=== PATIENT | female | born 1990 | race Caucasian/White ===

== ENCOUNTER 2019-05-14 11:08 | Emergency (ER) | payer MEDICAID, SELFPAY ==
[2019-05-14 11:14] VITALS: BP 126/72; PULSE 68; RESP 18; TEMP 36.7; O2SAT 97
--- NOTE | 2019-05-14 11:31 | ED.GENADUL_ITS ---
Discharge Plan Disposition Patient Disposition: HOME Condition: Good Discharge Details Chief Complaint: DentalOral Clinical Impression: Abscess, dental Primary Care Provider: Deepika Lemus ED Provider: Devora Mandujano Home Meds and New Rx's Prescriptions: New amoxicillin-pot clavulanate [Augmentin] 875-125 mg tablet 1 tab PO BID Qty: 14 RF: 0 Continued venlafaxine 75 MG tablet 150 mg PO DAILY RF: 0 venlafaxine [Effexor XR] 37.5 mg Capsule,Extended Release 24hr 37.5 mg PO DAILY RF: 0 lamotrigine 25 mg Tablet 75 mg PO DAILY RF: 0 acetylcysteine [NAC] 600 mg Capsule 1,200 mg PO DAILY RF: 0 acetylcysteine [NAC] 600 mg Capsule 600 mg PO HS RF: 0 Discharge Instructions Instructions: Dental Abscess (ED) Additional Instructions: Encourage water intake. Encourage good dental care. Tylenol and ibuprofen as needed for discomfort. Please take the Augmentin as prescribed. Even if symptoms improve, please take the entire course. You will need definitive care for your dental infection, please call the dentist. List of local dentist is attached. If you develop increased swelling, increased pain, fever/chills or other new/worsening symptom please seek care urgently once again. Referrals: Deepika Lemus [Primary Care Provider] - Discharge Data Discharge Date/Time-TO BE ENTERED AT DEPARTURE: 05/14/19 12:15 Medical Decision Making Patient is a pleasant 28-year-old female presented with chief complaint of left lower dental pain. She reports that the pain began a few days ago is progressively increasing. She only noted swelling this morning. Denies any fevers or chills. No recent travel. Patient reports that she has had issues with this historically is not been able to see a dentist secondary to insurance restrictions. Patient status post tubal ligation. She denies difficulty swallowing, difficulty breathing. On exam, patient has notable swelling to the left lower jaw. I did evaluate this with an ultrasound and see small pocket of fluid along the anterior aspect of the area of swelling. The remaining areas there is more consistent with soft tissue swelling. No trismus, change in voice. No swelling under her tongue. No swelling posterior oropharynx. Neck exam is normal. Patient I discussed risks benefits of drainage. We discussed expected procedural steps. She was understanding and wished to proceed. Please see procedure note. Area was initially numbed with Hurricaine gel and then injected with lidocaine. She tolerated this well. Amount of thick purulent discharge was expressed. Patient will be started on Augmentin. E ncourage water intake. Advised she can continue with Tylenol and/or ibuprofen as needed for discomfort. All of her questions and concerns addressed she is agreement with plan. List of local dentist was given and she will start calling tomorrow to see get definitive care for her dental infection. Review the PDMP. Patient is on Suboxone. HPI General Mode of arrival: ambulatory . Date/Time Provider Initiated Documentation: 05/14/19 11:31 . Limitations to Documentation: no limitations . Information obtained by: patient . History of Present Illness 28 year old F presents to the emergency department with the chief complaint of left lower dental pain, described as severe, with intensity rated at 9. Quality is described as stabbing, and is localized to the mouth. Patient reports no radiation. Patient started experiencing this day(s) and it has been constant. No relieving factors improve symptom(s), No exacerbating factors reported . Patient notes no other symptoms.. Patient did receive the following treatments prior to arrival, NSAID and other (tylenol) Related Data Home Medications Medication Instructions Recorded Confirmed venlafaxine 150 mg PO DAILY 04/20/15 05/14/19 acetylcysteine [NAC] 1,200 mg PO DAILY 05/14/19 05/14/19 acetylcysteine [NAC] 600 mg PO HS 05/14/19 05/14/19 amoxicillin-pot clavulanate 1 tab PO BID #14 tab 05/14/19 [Augmentin] lamotrigine 75 mg PO DAILY 05/14/19 05/14/19 venlafaxine [Effexor XR] 37.5 mg PO DAILY 05/14/19 05/14/19 Previous Rx's Medication Instructions Recorded amoxicillin-pot clavulanate 1 tab PO BID #14 tab 05/14/19 [Augmentin] Allergies Allergy/AdvReac Type Severity Reaction Status Date / Time No Known Allergies Allergy Unverified 04/20/15 17:38 General Stated Complaint: DentalOral JORDIN: 4 Review of Systems Constitutional Constitutional: Reports as per HPI, Denies chills, Denies fatigue, Denies fever(s), Denies headache(s) and Denies poor appetite Eyes Eyes: Denies change in vision and Denies irritation ENT Ears, Nose, Mouth, and Throat: Reports as per HPI, Reports dental pain, Denies dysphagia, Denies dizziness, Denies dry mouth, Denies ear discharge, Denies otalgia, Reports facial pain, Denies headache(s), Denies hoarseness, Denies lip swelling, Denies nasal congestion, Denies odynophagia and Denies sore throat Cardiovascular Cardiovascular: Reports as per HPI and Denies chest pain Respiratory Respiratory: Reports as per HPI and Denies cough Gastrointestinal Gastrointestinal: Reports as per HPI, Denies dysphagia, Denies nausea, Denies odynophagia and Denies vomiting Integumentary/Breasts Skin/Breast: Reports as per HPI, Denies erythema, Denies rash and Denies skin pain Neurologic Neurologic: Reports as per HPI, Denies dizziness and Denies headache(s) Endocrine Endocrine: Denies fatigue Allergic/Immunologic Allergic/Immunologic: Denies lip swelling [facility] Surgical History (Updated 05/14/19 @ 11:46 by TONG Cortes) Tubal ligation status (Acute) Social History Smoking/Tobacco Use Status: Current-Occasional Alcohol Intake: never Drug use: Daily Substance use type: marijuana Do you feel safe at home: Yes Do you feel safe in your relationship?: Yes Exam Const General: cooperative, healthy appearing, comfortable, no acute distress, well developed and well groomed Nutritional Appearance: average body habitus and well nourished Orientation: alert and awake [facility] Head: normal to inspection, normocephalic and atraumatic Ears: hearing grossly normal bilaterally, external ears normal and TM's normal bilaterally General nose exam: external nose normal and nares normal Face and sinus: abnormal facial exam, sinuses nontender and face asymmetric (swelling to left lower side of face adjacent to the area of dental pain) Face images: 1. area of swelling and tenderness Mouth: lip normal, tongue normal, salivary ducts normal, oropharynx normal, no drooling, no muffled voice, no trismus and No restricted motion Teeth and gingiva: poor dentition (swelling and tenderness buccal side #[id number] tooth) Throat: posterior oropharynx normal, tonsils normal and uvula midline Eyes General: appearance normal, both eyes and all related structures Neck Neck: normal visual inspection, full ROM, no lymphadenopathy, supple and no anterior neck swelling Resp Effort & Inspection: normal respiratory effort, able to speak in complete se ntences and no respiratory distress Auscultation: clear to auscultation bilaterally, no rales, no rhonchi and no wheezes Cardio Rate: regular rate Rhythm: regular rhythm Heart Sounds: S1 normal and S2 normal Skin General skin exam: no rashes or lesions noted Trauma: no lacerations or abrasions Neuro General: alert and awake Cognition: normal cognition Speech: speech normal Gait: normal gait Psych Appearance: grossly normal and well kempt Mental Status: mental status grossly normal Speech and Movement: speech and movement normal Course Vital Signs Vital signs: Vital Signs Temperature 36.7 C 05/14/19 11:14 Pulse 68 05/14/19 11:14 Respiratory Rate 18 05/14/19 11:14 Blood Pressure 126/72 05/14/19 11:14 Pulse Oximetry 97 05/14/19 11:14 Temperature 36.7 C 05/14/19 11:14 Temperature Source Skin 05/14/19 11:14 Pulse 68 05/14/19 11:14 Respiratory Rate 18 05/14/19 11:14 Respiratory Effort Non-Labored 05/14/19 11:17 Blood Pressure 126/72 05/14/19 11:14 Blood Pressure Position Sitting 05/14/19 11:14 Pulse Oximetry 97 05/14/19 11:14 Oxygen Delivery Method Room Air 05/14/19 11:14 Oxygen Flow Rate 0 05/14/19 11:14 Pain Level 9 05/14/19 11:14
[2019-05-14] MEDS: Benzocaine 20% Gel 30 GM JAR MM (11:48)
[2019-05-14] MEDS: Amoxicillin 875/Clav. 125 TAB PO (12:08)
[2019-05-14 12:16] VITALS: BP 126/72; PULSE 68; RESP 18; TEMP 36.7; O2SAT 97
[2019-05-17 22:16] LABS: Abs Immature Grans 0.03 k/cumm (0.0-0.09); Absolute Basophil Count 0.03 k/cumm (0.0-0.2); Absolute Eosinophil Count 0.23 k/cumm (0.0-0.7); Absolute Lymphocyte Count 2.44 k/cumm (1.2-3.4); Absolute Monocyte Count 0.55 k/cumm (0.11-0.7); Absolute Neutrophil Count 3.52 k/cumm (1.2-6.7); Basophils % 0.4; Eosinophils % 3.4; HGB 13.3 g/dL (12.0-15.5); Immature Grans % 0.4 %; Lymphocytes % 35.9; Mean Corp. HGB Concentration 33.3 g/dL (32.0-36.0); Mean Corpuscular Hemoglobin 30.1 pg (27.0-33.0); Mean Corpuscular Volume 90.5 fL (80-95); Mean Platelet Volume 10.3 fL (8.0-11.0); Monocytes % 8.1; Neutrophils % 51.8; Platelet Count 350 x1000/uL (130-400); RBC 4.42 m/cumm (4.00-5.20); RBC Distribution Width 12.6 % (11.7-14.6)
[2019-05-17 23:08] LABS: ALT 15 U/L (14-59); AST 12 U/L (15-37); Alkaline Phosphatase 65 U/L (46-116); Anion Gap 10.7 mmol/L (3-11); BUN 13 mg/dL (7-18); Bilirubin, Total 0.2 mg/dL (0.2-1.0); CO2 29.3 mmol/L (21.0-32.0); CREATININE 0.56 mg/dL (0.55-1.02); Calcium 9.1 mg/dL (8.5-10.1); Calculated LDL 91 mg/dL (<100); Chloride 102 mmol/L (98-107); Cholesterol 143 mg/dL (<200); Glucose 69 mg/dL (74-106); HDL Cholesterol 39 mg/dL (40-60); Sodium 142 mmol/L (136-145); TSH (W/Ref FT4) 1.19 uIU/mL (0.36-3.74); Total Protein 7.4 g/dL (6.4-8.2); Triglyceride 69 mg/dL (<150); Vitamin B12 380 pg/mL (193-986)
[2019-05-17 23:16] LABS: C-Reactive Protein 3.34 mg/dL (0.0-0.3)
[2019-05-18 06:47] LABS: Vitamin D 25 Total 11.5 ng/ml (30-100)
[2019-05-19 09:50] LABS: FSH 6.3 mIU/mL (See Note)
[2019-05-19 10:02] LABS: HIV-1/2 Ag & Ab Screen Negative (Negative)
[2019-05-19 14:49] LABS: Chlamydia Result Negative (Negative); GC Result Negative (Negative)
== END 2019-05-14 12:15 | disposition home or self-care (01) ==
LOC: ER 12:09 → NCHCN 05-17 10:45
PROVIDERS: Emergency Provider Physician Assistant; PCP Internal Medicine
DX: R22.0 Localized swelling, mass and lump, head (principal); R68.84 Jaw pain; K04.7 Periapical abscess without sinus
CPT/HCPCS: 41800; 80053; 80061; 82306; 87389; 87491; 87591; 82607; 83001; 84146; 84443; 85025; 86140

== ENCOUNTER 2019-05-17 09:49 | Outpatient (REF) | payer MEDICAID, SELFPAY | END 2019-05-17 10:09 | LOC: NCHCN 09:49 | PROVIDERS: PCP Internal Medicine; Visit Provider Internal Medicine | DX: Z12.11 Encounter for screening for malignant neoplasm of colon (principal); Z11.4 Encounter for screening for human immunodeficiency virus [HIV] | CPT/HCPCS: 41800 ==

== ENCOUNTER 2020-07-17 16:22 | Outpatient (REF) | payer MEDICAID, SELFPAY ==
--- NOTE | 2020-07-17 14:25 | PAPFT_PTH ---
PATIENT: Alice Natarajan LOC: [facility] U#:[id number] AGE/SX: 29/F ROOM: RE07/17/[address]: Deepika Lemus : 1990 BED: DIS: 07/17/2020 SPEC #: [id number] RECD: 07/18/20 12:45 STATUS: MUNIRA REKamran #: [id number] DEMETRA: 07/17/20 14:[address]: Deepika Lemus DEPT: [facility] Cytology RECD BY: Lucero Magaña Tissues: 1 - CX/ENDOCX FOR PAP SMEARS Procedures: PAP THIN PREP/UVM Screening HPV DNA PROBE Comments: [id number]
== END 2020-07-17 16:23 | disposition home or self-care (01) ==
LOC: NCHCN 16:22
PROVIDERS: PCP Internal Medicine; Visit Provider Internal Medicine
DX: Z12.4 Encounter for screening for malignant neoplasm of cervix (principal); R87.610 Atypical squamous cells of undetermined significance on cytologic smear of cervix (ASC-US); Z11.51 Encounter for screening for human papillomavirus (HPV)
CPT/HCPCS: 88142; 87624

== ENCOUNTER 2020-10-24 17:32 | Outpatient (REF) | payer MEDICAID, SELFPAY ==
[2020-10-26 13:12] LABS: Lithium 1.1 mmol/l (0.6-1.2)
== END 2020-10-24 17:33 | disposition home or self-care (01) ==
LOC: NCHCN 17:32
PROVIDERS: PCP Internal Medicine; Visit Provider Internal Medicine
DX: F11.20 Opioid dependence, uncomplicated (principal); F31.9 Bipolar disorder, unspecified
CPT/HCPCS: 80178

== ENCOUNTER 2021-09-26 20:58 | Outpatient (REF) | payer MEDICAID, SELFPAY ==
[2021-09-29 15:30] LABS: COVID-19 RT-PCR UVMMC Result Negative (Negative)
== END 2021-09-26 20:59 | disposition home or self-care (01) ==
LOC: NCHCN 20:58
PROVIDERS: PCP Internal Medicine; Visit Provider Registered Nurse
DX: Z20.822 Contact with and (suspected) exposure to COVID-19 (principal); J06.9 Acute upper respiratory infection, unspecified
CPT/HCPCS: U0003

== ENCOUNTER 2021-09-30 18:32 | Outpatient (REF) | payer MEDICAID, SELFPAY ==
[2021-09-30 20:26] LABS: TSH (W/Ref FT4) 0.21 uIU/mL (0.36-3.74)
[2021-09-30 20:44] LABS: FREE T4 1.02 ng/dL (0.76-1.46)
== END 2021-09-30 18:33 | disposition home or self-care (01) ==
LOC: NCHCN 18:32
PROVIDERS: PCP Internal Medicine; Visit Provider Nurse Practitioner Family
DX: R00.0 Tachycardia, unspecified (principal); R25.1 Tremor, unspecified
CPT/HCPCS: 84439; 84443

== ENCOUNTER 2021-10-07 15:16 | Outpatient (REF) | payer MEDICAID, SELFPAY ==
[2021-10-07 21:07] LABS: T4 7.8 ug/mL (4.7-13.3); TSH 0.65 uIU/mL (0.36-3.74)
[2021-10-08 18:02] LABS: T3, Total 130 ng/dL (97-169)
[2021-10-08 19:15] LABS: Thyroglobulin Antibody <15 U/mL (<=60); Thyroperoxidase Antibody <28 U/mL (<=60)
== END 2021-10-07 15:17 | disposition home or self-care (01) ==
LOC: NCHCN 15:16
PROVIDERS: PCP Internal Medicine; Visit Provider Nurse Practitioner Family
DX: E05.90 Thyrotoxicosis, unspecified without thyrotoxic crisis or storm (principal)
CPT/HCPCS: 86376; 84436; 84443; 84480

== ENCOUNTER 2022-01-04 18:42 | Emergency (ER) | payer MEDICAID, SELFPAY ==
[2022-01-04 19:00] VITALS: BP 115/66; PULSE 64; RESP 18; TEMP 36.7; O2SAT 99
--- NOTE | 2022-01-04 19:10 | ED.GENADUL_ITS ---
Discharge Plan Disposition Patient Disposition: HOME Condition: Stable Discharge Details Clinical Impression: Acromioclavicular joint separation, type 3 Primary Care Provider: Deepika Lemus ED Provider: Thee Nevarez Home Meds and New Rx's Prescriptions: Continued venlafaxine 75 MG tablet 150 mg PO DAILY lamotrigine 25 mg Tablet 200 mg PO DAILY acetylcysteine [NAC] 600 mg Capsule 1,200 mg PO DAILY buprenorphine-naloxone [Suboxone] 8-2 mg film 2 film sublingual DAILY Discharge Instructions Instructions: Acromioclavicular Separation (ED) Additional Instructions: X-ray reveals an AC joint separation. Wear sling until reevaluation with o rthopedics. Passive range of motion to avoid a frozen shoulder at least 4 times daily. [id number] Tylenol and/or Motrin as directed for discomfort. Cool compresses every 2 hours for 20 minutes. Please watch for new or worsening symptoms and return to the ER for any concerns. I have placed you on the orthopedic list, please contact their office tomorrow to discuss your shoulder injury and need for outpatient reevaluation. Referrals: Blair Morales MD [ [facility] STAFF PHYSICIAN] - Medical Decision Making 31-year-old female, [id number], reports that she was chasing her dog, tripped and fell landing on her left shoulder. She denies any other injury. She reports moderate pain, has not taken any medication prior to arrival. She tells me that she was drinking alcohol this evening. Given her history of alcohol use this evening as well as being on Suboxone, will provide IM Toradol. Will obtain x-ray of the left shoulder. X-ray reveals a type III AC separation Discussed x-ray findings with patient. Sling provided. Placed on the orthopedic list to help expedite outpatient follow-up Standard discharge and return precautions were provided. Patient understands, is agreeable to this plan, and has no additional questions or concerns upon discharge. This documentation was generated using Fromographyation system, please disregard any oddities of phrase or misspellings. Medical Records Medical records reviewed: Yes I reviewed the patient's medical records. Imaging Data Radiologic Study: Attestation: I personally reviewed and interpreted this imaging study as follows: Imaging: X-Ray Radiologist's impression: PROCEDURE INFORMATION: Exam: XR Left Shoulder Exam date and time: 01/04/2022 8:03 PM Age: 31 years old Clinical indication: Shoulder; Left; Patient HX: Fall/pain TECHNIQUE: Imaging protocol: Radiologic exam of the Left shoulder. Views: 2 or more views. COMPARISON: No relevant prior studies available. FINDINGS: Bones/joints: AC separation. There is elevation of the clavicle at the AC joint. The coracoclavicular distance is 2.5 cm. This is consistent with a type 3 AC separation. No fracture evident.. Soft tissues: Normal. IMPRESSION: 1. Type 3 AC separation injury. 2. No fracture or glenohumeral dislocation. HPI General Mode of arrival: ambulatory . Date/Time Provider Initiated Documentation: 01/04/22 19:10 . Limitations to Documentation: no limitations . Information obtained by: patient and family . History of Present Illness 31 year old F presents to the emergency department with the chief complaint of L shoulder injury, described as severe, with intensity rated at 9. Quality is described as aching, and is localized to the left and upper extremity. Patient reports no radiation. Patient started experiencing this hour(s) (1) and it has been constant. No relieving factors improve symptom(s), Movement worsens symptoms . Patient notes no other symptoms.. Patient did receive the following treatments prior to arrival, none Related Data Home Medications Medication Instructions Recorded Confirmed venlafaxine 75 mg tablet 150 mg PO DAILY 04/20/15 01/04/22 acetylcysteine 600 mg capsule (NAC) 1,200 mg PO DAILY 05/14/19 01/04/22 lamotrigine 25 mg tablet 200 mg PO DAILY 05/14/19 01/04/22 buprenorphine 8 mg-naloxone 2 mg 2 film sublingual DAILY 01/04/22 01/04/22 sublingual film (Suboxone) Allergies Allergy/AdvReac Type Severity Reaction Status Date / Time tramadol AdvReac Mild Unverified 01/04/22 19:03 General Stated Complaint: Orthopedic JORDIN: 3 Review of Systems Constitutional Constitutional: Denies headache(s) and Denies weakness ENT Ears, Nose, Mouth, and Throat: Denies headache(s) Cardiovascular Cardiovascular: Denies chest pain and Denies dyspnea Respiratory Respiratory: Denies dyspnea Musculoskeletal Musculoskeletal: Reports arthralgias, Denies numbness and Denies tingling Integumentary/Breasts Skin/Breast: Denies rash Neurologic Neurologic: Denies headache(s), Denies numbness, Denies tingling and Denies weakness PFSH All Active Problems (Updated 01/04/22 @ 20:53 by TONG Frederick) Abscess, dental (Acute) Acromioclavicular joint separation, type 3 (Acute) Surgical History Tubal ligation status Social History Smoking/Tobacco Use Status: Current-Occasional Tobacco Type: cigarettes Smoking risk assessment performed?: Yes Alcohol Intake: never Drug use: Daily Substance use type: marijuana Do you feel safe at home: Yes Do you feel safe in your relationship?: Yes Exam Const General: cooperative, healthy appearing, comfortable and no acute distress Orientation: alert, awake and oriented x3 HENMT Head: normal to inspection, normocephalic and atraumatic Eyes General: appearance normal, both eyes and all related structures Conjunctivae: conjunctivae normal Neck Neck: normal visual inspection, full ROM, trachea midline, supple and nontender Chest Chest: tenderness clavicle on the left distal clavicular Resp Effort & Inspection: normal respiratory effort and able to speak in complete sentences Auscultation: clear to auscultation bilaterally Cardio Rate: regular rate Rhythm: regular rhythm Back/Spine/Pelvis Back: No back tenderness Skin General skin exam: no rashes or lesions noted Neuro General: patient alert, patient awake, moves all extremities and no focal motor deficits Sensory Exam: no sensory deficits noted Extrem General: capillary refill normal Other: There is diffuse discomfort over the left shoulder worse over the AC joint with question of deformity. Examination is guarded secondary to discomfort. Neuro, vascular, tendon intact. Normal radial pulse and capillary refill Psych Appearance: grossly normal Mental Status: mental status grossly normal Course Vital Signs Vital signs: Vital Signs Temperature 36.7 C 01/04/22 19:00 Pulse 64 01/04/22 19:00 Respiratory Rate 18 01/04/22 19:00 Blood Pressure 115/66 01/04/22 19:00 Pulse Oximetry 99 01/04/22 19:00 Temperature 36.7 C 01/04/22 19:00 Temperature Source Skin 01/04/22 19:00 Pulse 64 01/04/22 19:00 Respiratory Rate 18 01/04/22 19:00 Respiratory Effort Non-Labored 01/04/22 19:05 Blood Pressure 115/66 01/04/22 19:00 Pulse Oximetry 99 01/04/22 19:00 Pain Level 9 01/04/22 19:05 PAWSS Have you Been Recently Intoxicated or Drunk Within the Last 30 days?: No Have you Ever Experienced Previous Episodes of Alcohol Withdrawal?: No Have you ever Experienced Withdrawal Seizures?: No Have you ever Experienced Delirium Tremens(DT)s?: No Have you ever undergone Alcohol Rehabilitation Treatment (i.e, inpt ot outpatient treatment programs)?: No Have you ever Experienced Blackouts?: No Have you ever Combined Alcohol with other Downers within the last 90 days?: No Have you ever Combined Alcohol with any other Substance of Abuse during the last 90 days?: No Positive Blood Alcohol level on Presentation? [PCS.BAL]: No Evidence of Increased Autonomic Activity (i.e. HR>120, tremor, sweating, agitation, nausea)?: No Result: 0
--- NOTE | 2022-01-04 19:15 | DI.RAD_ITS ---
Exam(s) XR SHOULDER LT COMPLETE 2+V EXAM: XR SHOULDER LT COMPLETE 2+V CLINICAL HISTORY: fall/pain. TECHNIQUE: 2D digital imaging was performed. Three views. COMPARISON: No exams were available for comparison FINDINGS: BONES: No acute fracture is present. No bony destructive lesion is seen. JOINTS: There is marked widening of the AC joint as well as elevation of the clavicle and abnormal wi dening of the cortical clavicular distance, consistent with a grade 3 AC separation. Glenohumeral abdelrahman int is maintained. SOFT TISSUE: Normal. IMPRESSION: Grade 3 AC separation. No evidence of fracture. DATA REPOSITORY: RADIATION DOSE DELIVERED:
--- NOTE | 2022-01-04 20:26 | DI.VRAD_ITS ---
PROCEDURE INFORMATION: Exam: XR Left Shoulder Exam date and time: 01/04/2022 8:03 PM Age: 31 years old Clinical indication: Shoulder; Left; Patient HX: Fall/pain TECHNIQUE: Imaging protocol: Radiologic exam of the Left shoulder. Views: 2 or more views. COMPARISON: No relevant prior studies available. FINDINGS: Bones/joints: AC separation. There is elevation of the clavicle at the AC joint. The coracoclavicular distance is 2.5 cm. This is consistent with a type 3 AC separation. No fracture evident.. Soft tissues: Normal. IMPRESSION: 1. Type 3 AC separation injury. 2. No fracture or glenohumeral dislocation. Dictated and Authenticated by: Eduardo Dunne MD. Ordering:MARIALUISA Kingston MD
[2022-01-04] MEDS: Ketorolac 60 MG/2 ML VIAL IM (20:44)
== END 2022-01-04 21:02 | disposition home or self-care (01) ==
PROVIDERS: Emergency Provider Physician Assistant; PCP Internal Medicine
DX: S43.102A Unspecified dislocation of left acromioclavicular joint, initial encounter (principal); F17.210 Nicotine dependence, cigarettes, uncomplicated; W01.0XXA Fall on same level from slipping, tripping and stumbling without subsequent striking against object, initial encounter; Y93.02 Activity, running
CPT/HCPCS: 96372; 99284; 73030; J1885

== ENCOUNTER 2022-05-13 11:07 | Outpatient (CLI) | payer MEDICAID, SELFPAY ==
--- NOTE | 2022-05-13 11:00 | DI.RAD_ITS ---
Exam(s) XR CLAVICLE LT EXAM: XR CLAVICLE LT INDICATION: left clavicle f/u. COMPARISON: CR,XR XR SHOULDER LT COMPLETE 2+V from 01/04/2022 TECHNIQUE: 2D digital imaging was performed. Two views. FINDINGS: Marked elevation of the clavicle with respect to the acromion. This appears to have increased when c ompared with the prior exam. There are 2 small bony densities seen beneath the distal clavicle. DATA REPOSITORY: RADIATION DOSE DELIVERED:
== END 2022-05-13 11:08 | disposition home or self-care (01) ==
LOC: DIORS 11:07
PROVIDERS: PCP Internal Medicine; Referring Provider Internal Medicine; Visit Provider Student in an Organized Health Care Education/Training Program
DX: S43.122A Dislocation of left acromioclavicular joint, 100%-200% displacement, initial encounter (principal); X58.XXXA Exposure to other specified factors, initial encounter
CPT/HCPCS: 73000

== ENCOUNTER 2022-07-03 00:44 | Outpatient (CLI) | payer MEDICAID, SELFPAY ==
--- NOTE | 2022-07-03 07:27 | DI.MRI_ITS ---
Exam(s) MR UPPER JOINT LT WO EXAM: MR UPPER JOINT LT WO CLINICAL HISTORY: High grade AC separation,S43.102A. TECHNIQUE: Multiplanar multisequence MRI was performed. COMPARISON: CR XR CLAVICLE LT from 05/13/2022 FINDINGS: BONES: There is mild edema seen in the distal clavicle. No fractures identified. JOINTS: There is widening of the acromioclavicular joint with elevation of the distal clavicle relati ve to the acromion consistent with an AC joint separation. There is fluid seen between the distal cl avicle and acromion. The glenohumeral joint is normal. TENDONS: Supraspinatus: Unremarkable. Infraspinatus: Unremarkable. Subscapularis: Unremarkable. Teres Minor: Unremarkable. Biceps and [place]: Unremarkable. MUSCLES: Unremarkable. GLENOID LABRUM: Unremarkable on this noncontrast examination. SOFT TISSUES: Unremarkable. LIGAMENTS: The coracoclavicular ligament appears to be at least partially torn. It is particularly i ndistinct at its clavicular attachment site. The acromioclavicular ligaments are likewise indistinct suggestive of a tear. OTHER: Subacromial and subdeltoid bursae are unremarkable. IMPRESSION: 1. Left acromioclavicular joint separation. Both the coracoid clavicular and acromioclavicular ligam ents are indistinct suggestive of tears. 2. Edema seen in the distal clavicle without evidence of a fracture. DATA REPOSITORY:
== END 2022-07-03 01:04 ==
LOC: DI 00:45
PROVIDERS: PCP Internal Medicine; Visit Provider Student in an Organized Health Care Education/Training Program
DX: M25.512 Pain in left shoulder (principal); S43.082A Other subluxation of left shoulder joint, initial encounter; S43.52XA Sprain of left acromioclavicular joint, initial encounter; X58.XXXA Exposure to other specified factors, initial encounter
CPT/HCPCS: 73221

== ENCOUNTER 2022-08-14 08:22 | Day surgery (SDC) | payer MEDICAID, SELFPAY ==
[2022-08-14] VITALS (13 sets, daily range): BP systolic 95–114; BP diastolic 36–84; PULSE 55–75; RESP 10–18; TEMP 36.4–36.7; O2SAT 91–100; BMI 25.2
--- NOTE | 2022-08-14 07:26 | W.PM.DSUDISC ---
Date of service: 08/14/22 Time of Service: 15:00 Discharge Plan Disposition Patient Disposition: Home Discharge Details Attending Provider: Pete Gardiner Primary Care Provider: Deepika Lemus Home Meds and New Rx's Prescriptions: New naproxen 250 mg tablet 250 - 500 mg PO BID PRNQty: 40 0RF Rx Instructions: take with a meal Continued metoprolol succinate 25 mg tablet extended release 24 hr 25 mg PO DAILY buspirone 10 mg tablet 10 mg PO BID venlafaxine 75 MG tablet 150 mg PO DAILY lamotrigine 25 mg Tablet 200 mg PO DAILY acetylcysteine [NAC] 600 mg Capsule 1,200 mg PO DAILY buprenorphine-naloxone [Suboxone] 8-2 mg film 2 film sublingual DAILY Excedrin Migraine 250-250-65 mg Tablet 250 tab PO 4-6XD PRN Discharge Instructions Additional Instructions: Surgery: Left AC joint reconstruction with allograft and hook plate Activity: For 6 weeks, you should keep your arm at your side in a neutral position at all times. You should use the sling whenever you are out of the house. You may have to adjust the abduction pillow or remove it for comfort. At home it is best to remove the sling and rest the arm on a pillow at your side or support the operative side with your other hand. You may use your left hand gently for activities of daily living. No heavy lifting, reaching overhead, or lifting away from body until hook plate is removed in about 3-4 months. Prescriptions: Naproxen 250 mg take 1-2 every 12 hours with a meal as needed for moderate pain You may use [id number] Tylenol (acetaminophen) as needed for mild pain. These pain medications may be taken all at once or in different combinations as needed. Also, recommend Colace (docusate) as a stool softener as surgery and pain medicine cause constipation. You may try uyhk-[id number] diphenhydramine (Benadryl) 25-50 mg nightly as a sleep aid Dressings: Keep the Band-Aid clean, dry, and intact until follow-up. No showers please. Follow-up: 10-[address] Gardiner You may take off the leg compression stockings this evening at home. You may also leave them on a few days longer if you have a history of leg swelling or edema. Let us know right away if you develop any redness, drainage, fevers, chest pain, or trouble breathing. Do not drink alcohol or drive for at least 24 hours after anesthesia. Please call the office during business hours with any questions or concerns. Stand Alone Forms: Anesthesia Discharge Inst.Jaime ([facility]U) Referrals: Pete Gardiner MD [ [facility] STAFF PHYSICIAN] - 08/26/22 2:15 pm Discharge Orders Discharge Orders: Discharge Order (Routine); Ordered 08/14/22 Ordered By: Pete Gardiner DS: Diagnosis Discharge Diagnosis (1) Separation of left acromioclavicular joint: Status: Acute
--- NOTE | 2022-08-14 07:26 | W.PM.OP ---
Date of service: 08/14/22 Time of Service: 12:00 Operative Note Operative Note DATE OF PROCEDURE: 08/14/22 PRE-OP DIAGNOSIS: Left chronic high-grade AC joint separation PROCEDURE: Left AC joint reconstruction with allograft and hook plate, CPT #08206 SURGEON: Pete Gardiner [employer] SUPERVISOR: Viky Villa ANESTHESIA TYPE: Local By Surgeon, General LMA/ETT and Primary Nerve Block Refer to Anesthesia Record ESTIMATED BLOOD LOSS: 10 Patient was transported to: PACU Implants: Synthes 2.7mm VA LCP clavicle hook plate system: Left, 12 mm hook button plate with 4 x 2.7 mm bicortical locking screws Indications: Please see complete medical record for details. Procedure Description: In the operating room, general anesthesia was induced. The patient was positioned supine on the operating room table. All bony prominences were well-padded. Preoperative antibiotics were administered. The distal clavicle was prepped and draped in the usual sterile fashion. The correct patient, procedure, and side of the procedure were all verified prior to incision. The planned incision was pre-injected with local anesthetic containing epinephrine. The AC joint and distal clavicle were approached raising full-thickness flaps down to bone. The incision was extended medially laterally as necessary. Care was taken to preserve soft tissue attachments. The distal clavicle was readily identified, highly unstable in both the vertical and horizontal planes. There was significant scar tissue about the AC joint. A small opening was made to access the undersurface acromion posteriorly for the planned hook plate. The deltoid was elevated off the anterior clavicle superior to the coracoid as needed to access the coracoid. The coracoid passer was then carefully shuttled using tactile and fluoroscopic guidance around the undersurface of the base of the coracoid working from medial to lateral and nitinol established around the base of the coracoid, which was confirmed fluoroscopically. The Arthrex flexible obturator dilator was then passed around the undersurface of the coracoid to ensure appropriate space for graft. The 7.5 mm x 230 mm peroneus longus allograft was prepared on the back table, soaked in vancomycin solution, and fiber loop whipstitched on either end. The graft was then shuttled around the undersurface of the base of the coracoid with the lateral and anterior medial and posterior wrapping over the clavicle. The clavicle was provisionally reduced with bone forceps in both vertical and horizontal planes. Decision was made to proceed with hook plate fixation for added security as planned over a different form of coracoclavicular fixation. The templates for the Synthes clavicle hook plates were sized with the button plate with a 12 mm hook demonstrating the best fit. The plate was applied to the distal end of the clavicle while it was maintained reduced and the hook confirmed to be appropriately under the acromion. The plate was compressed to bone with a threaded olive wire. For 2.7 mm bicortical locking screws were then used to secure the plate to bone. The clavicle was stable and reduced on testing. The ends of the soft tissue allograft were then tied in a knot resting on top of the medial aspect of the button plate. The graft limbs were then secured together using suture tape. A single limb was then brought anteriorly and used to augment deltoid fascia repair and reapposition to the anterior distal clavicle. The other limb was then brought over the top of the hook plate to the acromion and used to augment AC joint capsule and trapezial fascia repair. The construct was tested and demonstrated excellent stability. Plate screws were slightly long as planned to ensure optimal fixation strength with planned removal in about 3-4 months. The wound was copiously irrigated with normal saline. Deep and subcutaneous tissue was closed in a full-thickness watertight fashion with buried interrupted 2-0 Monocryl. Subcuticular layer was closed using running 3-0 Monocryl. Skin glue was applied over the incision followed by a Mepilex Band-Aid. The patient awoke from anesthesia without complication and was transferred to the recovery room in a stable condition.
[2022-08-14] MEDS: Lactated Ringers 1,000 ML 30 ML IV (08:52)
--- NOTE | 2022-08-14 09:15 | DI.RAD_ITS ---
Exam(s) XR SHOULDER RT 1V EXAM: XR SHOULDER RT 1V CLINICAL HISTORY: Separation of left acromioclavicular joint. TECHNIQUE: 2D digital imaging was performed. COMPARISON: No exams were available for comparison FINDINGS: Fluoroscopy provided during orthopedic procedure on distal left clavicle-AC region. See procedure report details. Total fluoroscopy time 26 seconds IMPRESSION: Radiation exposure index/cumulative dose: Yanetr= 1.5850mGy DATA REPOSITORY: RADIATION DOSE DELIVERED:
--- NOTE | 2022-08-14 09:40 | ANES.PREOP_ITS ---
General Info Date of Service Date Performed: 08/14/22 Height: 5 ft 3 in Weight: 64.7 kg Body Mass Index (BMI): 25.2 Surgical Procedure: Operation Date: 08/14/22 09:55 Proposed Procedure Side Surgeon p Acromioclavicular Joint Reconstruction w/Allograft and Hook Plate Left Pete Gardiner MD Actual Procedure Side Surgeon p Acromioclavicular Joint Reconstruction w/Allograft and Hook Plate Left Pete Gardiner MD Pre-Op Diagnosis Post-Op Diagnosis Separation of left acromioclavicular joint Meds Allergies and Home Medications Allergies Allergy/AdvReac Type Severity Reaction Status Date / Time tramadol AdvReac Mild Unverified 08/14/22 09:01 Home Medication Medication Instructions Recorded venlafaxine 75 mg tablet 150 mg PO DAILY 04/20/15 acetylcysteine 600 mg capsule (NAC) 1,200 mg PO DAILY 05/14/19 lamotrigine 25 mg tablet 200 mg PO DAILY 05/14/19 buprenorphine 8 mg-naloxone 2 mg 2 film sublingual DAILY 01/04/22 sublingual film (Suboxone) buspirone 10 mg tablet 10 mg PO BID 05/13/22 metoprolol succinate 25 mg 25 mg PO DAILY 05/13/22 tablet,extended release 24 hr equyxlb-vdbnstwkvklnv-iwrznihc 250 250 tab PO 4-6XD PRN 08/14/22 mg-250 mg-65 mg tablet (Excedrin Migraine) Current Visit Medications: Current Medications Generic Name Dose Route Start Last Admin Trade Name Freq PRN Reason Stop Dose Admin Ringer's Solution 1,000 mls @ 30 mls/hr 08/14/22 06:00 08/14/22 08:52 IV 08/14/22 16:00 30 mls/hr INFUSION TORI Administration Cefazolin Sodium/Dextrose 2 gm in 50 mls @ 100 mls/hr 08/14/22 06:00 Ancef Duplex IVPB 08/14/22 23:59 PREOP TORI IV Miscellaneous Supplies 1 each 08/14/22 06:00 Iv Access IV 08/14/22 23:59 DIRECTED TORI Oxycodone HCl 0 mg 08/14/22 07:26 Oxycodone 5 Mg Tab PO Q3H PRN PRN Pain Sodium Chloride 0 ml 08/14/22 06:00 Normal Saline Flush 10 Ml Syr IV 08/14/22 23:59 PRN PRN Sodium Chloride 0 ml 08/14/22 06:00 Normal Saline 10 Ml Vial IJ 08/14/22 23:59 DIRECTED PRN Sterile Water 0 ml 08/14/22 06:00 Water,Injection,Sterile 10 Ml Vial IJ 08/14/22 23:59 DIRECTED PRN PFSH Active Problems Active Problems: Problem Status Onset Code Abscess, dental K04.7 Separation of left acromioclavicular joint 01/04/22 S43.102A Medical History Medical History (Updated 08/14/22 @ 09:04 by Anali Jones RN) Bipolar disorder Depression with anxiety Pt. states she in addition to her anti-depressants she is on metoprolol for elevated heartrate related to her anxiety, but is not required to see a sat math tutor History of umbilical hernia Hx of drug abuse Per pt. states clean for 8 years No-show for appointment Medical History Comments:: 08/14/22: pt repors she has a cough, getting over a cold for a couple of we. Reporst she did a COVID test and it was negative. 08/14/22: pt smoked cigarette this morning before arriving in [facility]. Surgical History Surgical History History of endometrial ablation Tubal ligation status Tobacco Smoking/Tobacco Use Status: Current-Occasional Tobacco Type: cigarettes Smoking cigarettes per day: 5 Alcohol Alcohol Intake: current Alcohol intake frequency: holidays/special occasions only Alcohol type: beer Substance Use Substance use: Daily Substance use type: marijuana Details: 08/13/22: smoked marijuana vape pen Vital Signs and Lab Results Vital Signs Most Recent Vital Signs in EMR: Most Recent Vital Signs Temp Pulse Resp BP Pulse Ox 36.4 C L 64 16 111/84 100 08/14/22 08:45 08/14/22 08:45 08/14/22 08:45 08/14/22 08:45 08/14/22 08:45 Lab Results Blood Type / Crossmatch: No Data to Display Complete Blood Count: No Data to Display Complete Metabolic Panel: No Data to Display Liver Function Panel: No Data to Display Coagulation Panel: No Data to Display Cardiac Panel: No Data to Display Arterial Blood Gas: No Data to Display Venous Blood Gas: No Data to Display Pancreas Panel: No Data to Display Thyroid Panel: No Data to Display Infectious Disease: No Data to Display Blood Cultures: No Data to Display Toxicology Panel: No Data to Display Panel: No Data to Display Anesthesia Assessment and Plan Anesthesia History Personal History: No History of Anesthesia Complications and Other Family History: No Family History of Anesthesia Complications and Family History Unknown Exercise Tolerance Exercise Tolerance: Metabolic Equivalents>4 Pertinent Negatives Pertinent Negatives: No Symptoms of GERD, No Major Cardiovascular Symptoms or Complaints, No Major Pulmonary Symptoms or Complaints and No History of CVA/TIA Cardiac & Pulmonary Exam Cardiac Exam: Normal S1/S2 Heart Sounds Pulmonary Exam: Clear Bilateral Breath Sounds Implantable Cardiac Device Does patient have a Pacemaker or an ICD?: No Airway Exam Known Difficult Airway: No Mallampati Class: 3 Mouth Opening: Normal (> 3cm) Thyromental Distance: Greater than 3 cm Neck Range of Motion: Full ROM Neck Circumference: Normal Teeth Condition: Generalized Poor Dentition (edentulous uppers amd five teeth at the bottom. pt states not loose) and Dental Caries ASA Classification ASA Score: ASA 2 Emergency Case?: No NPO Status NPO Status: NPO Clears >2 hours, Solids >8 hours Status Status: Negative HCG Anesthesia Plan Resuscitation Status: Full Code Anesthesia Technique: General Anesthesia Airway Planned: Endotracheal Tube Pain Management: Surgeon and patient request nerve block Monitors Used: Standard Monitors
[2022-08-14] MEDS: ceFAZolin 2 GM/50 ML BAG IVPB (12:33)
[2022-08-14] MEDS: fentaNYL 100 MCG/2 ML VIAL IVP ×2 (15:25→15:46)
--- NOTE | 2022-08-14 15:56 | W.ANESPOSTOP ---
Postoperative Evaluation Date, Time and Location Date Performed: 08/14/22 Time Performed: 15:56 Patient Location: PACU Vital Signs Most Recent Imported Vital Signs: Most Recent Vital Signs Temp Pulse Resp BP Pulse Ox 36.6 C 58 L 11 L 106/66 94 08/14/22 15:53 08/14/22 15:53 08/14/22 15:53 08/14/22 15:53 08/14/22 15:53 Pain Score Most Recent Pain Score: Most Recent Pain Score Pain Level 6 08/14/22 15:53 Assessment Mental Status: Awake (Alert & Oriented to Patient Baseline) Airway and Respiratory Function: Patent airway with normal (patient baseline) respiratory exam Cardiovascular Function: Hemodynamically Stable Hydration Status: Adequately Hydrated Nausea & Vomiting: No Nausea or Vomiting Pain: Pain is Moderate or Severe Postoperative Pain Management: Pain being addressed with medication Peripheral Nerve Block: Regional nerve block not resolved at time of post operative discharge
--- NOTE | 2022-08-14 16:06 | W.ANESNERVE ---
Nerve Block Single Injection Procedure Date and Time Date Performed: 08/14/22 Procedure Start: 11:59 Location Where Procedure Performed Procedure Location: Day Surgery Unit Reason Performed: Postoperative Analgesia Requesting Provider: Pete Gardiner Timeout Performed Timeout Performed: Yes Monitoring Used ECG, Blood Pressure, SpO2 and See EMR for corresponding vital signs Sterility Sterility: Hand Hygiene, Surgical Cap, Surgical Mask, Sterile Gloves and Chlorhexidine Sedation Given During Procedure Sedation Given (Indicate Dose Given): Versed IV Dose:: 2 mg Patient Mental Status Patient Mental Status: Sedate with meaningful communication Nerve Block 1st Nerve Block: Laterality: Left Block Type: Interscalene Ultrasound Image Saved?: Yes Needle / Catheter Used: 100mm SonoPlex II Local Anesthetic Bolus (Indicate Dose Given): Lidocaine used for local infiltration of skin, Injected in 3-5ml increments after negative blood aspiration, Bupivacaine 0.5% Dose:: 10 ml and Exparel Dose:: 10 ml Additives (Indicate Dose Given): None Ultrasound: Sterile probe cover and gel used Nerve Stimulator: Not Used Paresthesia: Left (Needle repositioned prior to injection) Paresthesia Duration: Transient Procedure Tolerated: No Complications and Patient tolerated well Procedure Outcome: Successful Performed By: Yola Morales Supervised By: Luisana Best
== END 2022-08-14 17:30 | disposition home or self-care (01) ==
PROVIDERS: PCP Internal Medicine; Visit Provider Student in an Organized Health Care Education/Training Program
PROC: (CPT 23515; principal; 2022-08-14 09:45)
DX: M24.412 Recurrent dislocation, left shoulder (principal)
CPT/HCPCS: 23552; 76942; 81025; 73020; J0690; J1100; J1885; J2250; J2370; J2405; J2704; J3010

== ENCOUNTER 2022-08-26 15:24 | Outpatient (CLI) | payer MEDICAID, SELFPAY ==
--- NOTE | 2022-08-26 14:30 | DI.RAD_ITS ---
Exam(s) XR SHOULDER LT COMPLETE 2+V EXAM: XR SHOULDER LT COMPLETE 2+V INDICATION: shoulder pain. COMPARISON: CR XR CLAVICLE LT from 05/13/2022 MR MR UPPER JOINT LT WO from 07/03/2022 XA XR SHOULDER RT 1V from 08/14/2022 TECHNIQUE: 2D digital imaging was performed. Two views. FINDINGS: There has been no change in the alignment of the hardware in the distal clavicle. There are no suspi cious bony lucencies. DATA REPOSITORY: RADIATION DOSE DELIVERED:
== END 2022-08-26 15:25 | disposition home or self-care (01) ==
LOC: DIORS 15:24
PROVIDERS: PCP Internal Medicine; Referring Provider Internal Medicine; Visit Provider Student in an Organized Health Care Education/Training Program
DX: W01.0XXD Fall on same level from slipping, tripping and stumbling without subsequent striking against object, subsequent encounter; S43.102D Unspecified dislocation of left acromioclavicular joint, subsequent encounter; Z47.1 Aftercare following joint replacement surgery
CPT/HCPCS: 73030

== ENCOUNTER 2022-09-29 15:37 | Outpatient (CLI) | payer MEDICAID, SELFPAY ==
--- NOTE | 2022-09-29 15:15 | DI.RAD_ITS ---
Exam(s) XR CLAVICLE LT EXAM: XR CLAVICLE LT CLINICAL HISTORY: left shoulder pain TECHNIQUE: 2D digital imaging was performed of the left clavicle. Two images were obtained. AP and axial views were obtained. COMPARISON: CR XR CLAVICLE LT from 05/13/2022 CR XR SHOULDER LT COMPLETE 2+V from 08/26/2022 FINDINGS: BONES: No acute fracture is present. No bony destructive lesion is seen. JOINTS: No dislocation present. There are stable postsurgical changes at the left acromioclavicular joint. SOFT TISSUE: Normal. IMPRESSION: Stable postsurgical changes at the left AC joint. DATA REPOSITORY: RADIATION DOSE DELIVERED:
== END 2022-09-29 15:38 | disposition home or self-care (01) ==
LOC: DIORS 15:37
PROVIDERS: PCP Internal Medicine; Referring Provider Internal Medicine; Visit Provider Student in an Organized Health Care Education/Training Program
DX: Z47.89 Encounter for other orthopedic aftercare (principal); Z47.1 Aftercare following joint replacement surgery; W01.0XXD Fall on same level from slipping, tripping and stumbling without subsequent striking against object, subsequent encounter; S43.102D Unspecified dislocation of left acromioclavicular joint, subsequent encounter; X58.XXXD Exposure to other specified factors, subsequent encounter
CPT/HCPCS: 73000

== ENCOUNTER 2022-11-10 15:09 | Outpatient (CLI) | payer MEDICAID, SELFPAY ==
--- NOTE | 2022-11-10 14:15 | DI.RAD_ITS ---
Exam(s) XR CLAVICLE LT EXAM: XR CLAVICLE LT INDICATION: CLAVICLE F/U. COMPARISON: CR XR CLAVICLE LT from 09/29/2022 TECHNIQUE: 2D digital imaging was performed. Two views. FINDINGS: There has been no change in the hardware at the distal clavicle and AC joint. No suspicious bony falguni encies. DATA REPOSITORY: RADIATION DOSE DELIVERED:
== END 2022-11-10 15:10 | disposition home or self-care (01) ==
LOC: DIORS 15:09
PROVIDERS: PCP Internal Medicine; Referring Provider Internal Medicine; Visit Provider Student in an Organized Health Care Education/Training Program
DX: S43.102D Unspecified dislocation of left acromioclavicular joint, subsequent encounter (principal); X58.XXXD Exposure to other specified factors, subsequent encounter
CPT/HCPCS: 73000

== ENCOUNTER 2022-11-18 14:19 | Outpatient (REF) | payer MEDICAID, SELFPAY ==
[2022-11-18 20:49] LABS: HCT 41.4 % (36.0-46.0); HGB 14.2 g/dL (11.2-15.7); MCH 31.1 pg (27.0-33.0); MCHC 34.3 % (32.0-36.0); MCV 91 fL (80-95); MPV 10.1 fL (8.0-11.0); Platelet Count 351 10^3/uL (130-400); RBC 4.57 10^6/uL (3.93-5.22); RDW 12.8 % (11.7-14.6); RDW-SD 42.2 fL; WBC 12.33 10^3/uL (4.4-10.8)
[2022-11-18 21:11] LABS: ALT 15 U/L (14-59); AST 18 U/L (15-37); Albumin 4.4 g/dL (3.4-5.0); Alkaline Phosphatase 59 U/L (46-116); Anion Gap 7.7 mmol/L (3-11); BUN 13 mg/dL (7-18); Bilirubin, Total 0.3 mg/dL (0.2-1.0); CO2 29.3 mmol/L (21.0-32.0); CREATININE 0.8 mg/dL (0.55-1.02); Calcium 9.7 mg/dL (8.5-10.1); Chloride 102 mmol/L (98-107); Estimated GFR 100.33 (mL/min/1.73m2); Glucose 96 mg/dL (74-106); Potassium 4.4 mmol/L (3.5-5.1); Sodium 139 mmol/L (136-145); TSH 0.42 uIU/mL (0.36-3.74)
== END 2022-11-18 14:20 | disposition home or self-care (01) ==
LOC: NCHCN 14:19
PROVIDERS: PCP Internal Medicine; Visit Provider Internal Medicine
DX: E05.90 Thyrotoxicosis, unspecified without thyrotoxic crisis or storm (principal); G44.89 Other headache syndrome; M54.2 Cervicalgia
CPT/HCPCS: 80053; 85027; 84443

== ENCOUNTER 2022-11-27 06:01 | Day surgery (SDC) | payer MEDICAID, SELFPAY ==
[2022-11-27] VITALS (10 sets, daily range): BP systolic 101–112; BP diastolic 54–81; PULSE 50–65; RESP 11–19; TEMP 36.3–36.6; O2SAT 65–98; BMI 24.7
[2022-11-27] MEDS: Lactated Ringers 1,000 ML 30 ML IV (06:35)
--- NOTE | 2022-11-27 06:51 | ANES.PREOP_ITS ---
General Info Date of Service Date Performed: 11/27/22 Height: 5 ft 3.25 in Weight: 63.7 kg Body Mass Index (BMI): 24.7 Surgical Procedure: Operation Date: 11/27/22 07:40 Proposed Procedure Side Surgeon p Hardware Removal Shoulder, Hook Plate Left Pete Gardiner MD Meds Allergies and Home Medications Allergies Allergy/AdvReac Type Severity Reaction Status Date / Time tramadol AdvReac Mild Unverified 11/27/22 06:16 Home Medication Medication Instructions Recorded venlafaxine 75 mg tablet 150 mg PO DAILY 04/20/15 acetylcysteine 600 mg capsule (NAC) 1,200 mg PO DAILY 05/14/19 lamotrigine 25 mg tablet 200 mg PO DAILY 05/14/19 buprenorphine 8 mg-naloxone 2 mg 2 film sublingual DAILY 01/04/22 sublingual film (Suboxone) metoprolol succinate 25 mg 25 mg PO DAILY 05/13/22 tablet,extended release 24 hr bfspfey-nhhkzteuornjy-gmgqauck 250 250 tab PO 4-6XD PRN 08/14/22 mg-250 mg-65 mg tablet (Excedrin Migraine) Current Visit Medications: Current Medications Generic Name Dose Route Start Last Admin Trade Name Freq PRN Reason Stop Dose Admin Ringer's Solution 1,000 mls @ 30 mls/hr 11/27/22 06:00 11/27/22 06:35 IV 11/27/22 16:00 30 mls/hr INFUSION TORI Administration Cefazolin Sodium/Dextrose 2 gm in 50 mls @ 100 mls/hr 11/27/22 06:00 Ancef Duplex IVPB 11/27/22 23:59 PREOP TORI IV Miscellaneous Supplies 1 each 11/27/22 06:00 Iv Access IV 11/27/22 23:59 DIRECTED TORI Sodium Chloride 0 ml 11/27/22 06:00 Normal Saline Flush 10 Ml Syr IV 11/27/22 23:59 PRN PRN Sodium Chloride 0 ml 11/27/22 06:00 Normal Saline 10 Ml Vial IJ 11/27/22 23:59 DIRECTED PRN Sterile Water 0 ml 11/27/22 06:00 Water,Injection,Sterile 10 Ml Vial IJ 11/27/22 23:59 DIRECTED PRN PFSH Active Problems Active Problems: Problem Status Onset Code Abscess, dental K04.7 Separation of left acromioclavicular joint 01/04/22 S43.102A Painful orthopaedic hardware T84.84XA Medical History Medical History Bipolar disorder Depression with anxiety Pt. states she in addition to her anti-depressants she is on metoprolol for elevated heartrate related to her anxiety, but is not required to see a geology technician History of umbilical hernia Hx of drug abuse Per pt. states clean for 9 years No-show for appointment Medical History Comments:: 08/14/22: pt repors she has a cough, getting over a cold for a couple of we. Reporst she did a COVID test and it was negative. 08/14/22: pt smoked cigarette this morning before arriving in [facility]. Surgical History Surgical History History of endometrial ablation Tubal ligation status Tobacco Smoking/Tobacco Use Status: Current-Occasional Tobacco Type: cigarettes Smoking cigarettes per day: 5 Alcohol Alcohol Intake: current Alcohol intake frequency: holidays/special occasions only Alcohol type: beer Substance Use Substance use: Daily Substance use type: marijuana and opiates Details: 08/13/22: smoked marijuana vape pen previous drug abuse history with opiods Vital Signs and Lab Results Vital Signs Most Recent Vital Signs in EMR: Most Recent Vital Signs Temp Pulse Resp BP Pulse Ox 36.6 C 64 18 107/73 97 11/27/22 06:10 11/27/22 06:10 11/27/22 06:10 11/27/22 06:10 11/27/22 06:10 Point of Care Results Point of Care Results: POC- Test(urine) Negative 11/27/22 06:35 Lab Results Blood Type / Crossmatch: No Data to Display Complete Blood Count: White Blood Count 12.33 10^3/uL (4.4-10.8) H 11/18/22 14:00 Red Blood Count 4.57 10^6/uL (3.93-5.22) 11/18/22 14:00 Hemoglobin 14.2 g/dL (11.2-15.7) 11/18/22 14:00 Hematocrit 41.4 % (36.0-46.0) 11/18/22 14:00 Platelet Count 351 10^3/uL (130-400) 11/18/22 14:00 Complete Metabolic Panel: Sodium 139 mmol/L (136-145) 11/18/22 14:00 Potassium 4.4 mmol/L (3.5-5.1) 11/18/22 14:00 Chloride 102 mmol/L (98-107) 11/18/22 14:00 Carbon Dioxide 29.3 mmol/L (21.0-32.0) 11/18/22 14:00 BUN 13 mg/dL (7-18) 11/18/22 14:00 Creatinine 0.8 mg/dL (0.55-1.02) 11/18/22 14:00 Est GFR (CKD-EPI 2020) 100.33 (mL/min/1.73m2) 11/18/22 14:00 Calcium 9.7 mg/dL (8.5-10.1) 11/18/22 14:00 Albumin 4.4 g/dL (3.4-5.0) 11/18/22 14:00 Glucose 96 mg/dL (74-106) 11/18/22 14:00 Liver Function Panel: Alanine Aminotransferase (ALT/SGPT) 15 U/L (14-59) 11/18/22 14: 00 Aspartate Amino Transf (AST/SGOT) 18 U/L (15-37) 11/18/22 14:00 Coagulation Panel: No Data to Display Cardiac Panel: No Data to Display Arterial Blood Gas: No Data to Display Venous Blood Gas: No Data to Display Pancreas Panel: No Data to Display Thyroid Panel: Thyroid Stimulating Hormone (TSH) 0.42 uIU/mL (0.36-3.74) 11/18 14:00 Infectious Disease: No Data to Display Blood Cultures: No Data to Display Toxicology Panel: No Data to Display Panel: No Data to Display Anesthesia Assessment and Plan Anesthesia History Personal History: No History of Anesthesia Complications Family History: No Family History of Anesthesia Complications Exercise Tolerance Exercise Tolerance: Metabolic Equivalents>4 Pertinent Negatives Pertinent Negatives: No Symptoms of GERD, No Major Cardiovascular Symptoms or Complaints, No Major Pulmonary Symptoms or Complaints and No History of CVA/TIA Cardiac & Pulmonary Exam Cardiac Exam: Normal S1/S2 Heart Sounds Pulmonary Exam: Clear Bilateral Breath Sounds Implantable Cardiac Device Does patient have a Pacemaker or an ICD?: No Airway Exam Known Difficult Airway: No Mallampati Class: 3 Mouth Opening: Normal (> 3cm) Thyromental Distance: Greater than 3 cm Neck Range of Motion: Full ROM Neck Circumference: Normal Teeth Condition: Generalized Poor Dentition (edentulous uppers amd five teeth at the bottom. pt states not loose), Dental Caries, Advised tooth loss possible given current condition (indicate tooth) (See note) and Edentulous (Upper) Tooth Numberin. Very poor dentition. Discussed risk of damage. ASA Classification ASA Score: ASA 2 Emergency Case?: No NPO Status NPO Status: NPO Clears >2 hours, Solids >8 hours Status Status: Negative HCG Anesthesia Plan Resuscitation Status: Full Code Anesthesia Technique: General Anesthesia Airway Planned: Endotracheal Tube Pain Management: Surgeon and patient request nerve block Monitors Used: Standard Monitors
--- NOTE | 2022-11-27 07:00 | DI.RAD_ITS ---
Exam(s) XR SHOULDER LT 1V EXAM: XR SHOULDER LT 1V CLINICAL HISTORY: PAINFUL HARWARE LEFT SHOULDER. TECHNIQUE: 2D digital imaging was performed. COMPARISON: No exams were available for comparison FINDINGS: Fluoroscopy provided during left shoulder orthopedic procedure. See procedure report for details. Total fluoroscopy time 4 seconds IMPRESSION: Radiation exposure index/cumulative dose: Ka,r= 0.2395mGy DATA REPOSITORY: RADIATION DOSE DELIVERED:
--- NOTE | 2022-11-27 07:11 | ROE_ITS ---
Date of service: 11/27/22 Time of Service: 07:30 Operative Note Operative Note DATE OF PROCEDURE: 11/27/22 PRE-OP DIAGNOSIS: Left chronic high-grade AC joint separation 3.5 months status post allograft reconstruction with hook plate fixation PROCEDURE: Left AC joint hook plate removal, CPT# 97998 SURGEON: Pete Gardiner HOUSEKEEPING ROOM ATTENDANT: Viky Villa ANESTHESIA TYPE: Local By Surgeon, General LMA/ETT and Primary Nerve Block Refer to Anesthesia Record ESTIMATED BLOOD LOSS: 5 Patient was transported to: PACU Indications: Please see complete medical record for details. Procedure Description: In the operating room, general anesthesia was induced. The patient was positioned supine on the operating room table. All bony prominences were well- padded. Preoperative antibiotics were administered. The distal clavicle was prepped and draped in the usual sterile fashion. The correct patient, procedure, and side of the procedure were all verified prior to incision. The central portion of the prior incision was pre-injected with bupivicaine anesthetic containing epinephrine. The AC joint and distal clavicle were approached raising full-thickness flaps down to the plate. The allograft was elevated off the medial margin of the plate as well as the extensions anteriorly along the clavicle and more posteriorly across to the AC joint and acromion. Screw heads were cleared and each screw readily removed. The plate was then freed from soft tissues, lifted off the distal clavicle comminuted hook and then removed. The distal clavicle was smoothed and screw holes cleared of any soft tissue. The distal clavicle was examined under stress and maintained appropriate relationship with the acromion under direct visualization and fluoroscopically confirmed. The wound was copiously irrigated with normal saline. Deepest fascia and allograft were closed together over the bone using 0 Vicryl. Deep and subcutaneous tissue was closed in a full-thickness watertight fashion with buried interrupted 2-0 Monocryl. Subcuticular layer was closed using running 3- 0 Monocryl. Skin glue was applied over the incision followed by a Mepilex Band- Aid. The patient awoke from anesthesia without complication and was transferred to the recovery room in a stable condition.
--- NOTE | 2022-11-27 07:13 | W.PM.DSUDISC ---
Date of service: 11/27/22 Time of Service: 10:30 Discharge Plan Disposition Patient Disposition: Home Condition: Stable Discharge Details Attending Provider: Pete Gardiner Primary Care Provider: Deepika Lemus Home Meds and New Rx's Prescriptions: New naproxen 250 mg tablet 250 - 500 mg PO BID PRNQty: 40 0RF Rx Instructions: take with a meal Continued metoprolol succinate 25 mg tablet extended release 24 hr 25 mg PO DAILY venlafaxine 75 MG tablet 150 mg PO DAILY lamotrigine 25 mg Tablet 200 mg PO DAILY acetylcysteine [NAC] 600 mg Capsule 1,200 mg PO DAILY buprenorphine-naloxone [Suboxone] 8-2 mg film 2 film sublingual DAILY Excedrin Migraine 250-250-65 mg Tablet 250 tab PO 4-6XD PRN Discharge Instructions Additional Instructions: Surgery: Left AC joint hook plate removal Activity: Protected weightbearing and light use of left upper extremity with sling about 2-3 weeks. Gently increase shoulder range of motion. A physical therapy prescription will be provided separately in the office at follow up. Prescriptions: Naproxen 250 mg take 1-2 every 12 hours with a meal as needed for moderate pain You may use [id number] Tylenol (acetaminophen) as needed for mild pain. These pain medications may be taken all at once or in different combinations as needed. Also, recommend Colace (docusate) as a stool softener as surgery and pain medicine cause constipation. You may try [id number] diphenhydramine (Benadryl) 25-50 mg nightly as a sleep aid Dressings: Leave dressing in place until follow-up. Keep clean and dry at all times. Follow-up: 10-[address] Gardiner You may take off the leg compression stockings this evening at home. You may also leave them on a few days longer if you have a history of leg swelling or edema. Let us know right away if you develop any redness, drainage, fevers, chest pain, or trouble breathing. Do not drink alcohol or drive for at least 24 hours after anesthesia. Please call the office during business hours with any questions or concerns. Discharge Orders Discharge Orders: Discharge Order (Routine); Ordered 11/27/22 Ordered By: Pete Gardiner DS: Diagnosis Discharge Diagnosis (1) Separation of left acromioclavicular joint: Status: Acute
[2022-11-27] MEDS: ceFAZolin 2 GM/50 ML BAG IVPB (07:45)
--- NOTE | 2022-11-27 08:03 | W.ANESNERVE ---
Nerve Block Single Injection Procedure Date and Time Date Performed: 11/27/22 Procedure Start: 07:16 Location Where Procedure Performed Procedure Location: Day Surgery Unit Reason Performed: Postoperative Analgesia Requesting Provider: Pete Gardiner Timeout Performed Timeout Performed: Yes Monitoring Used ECG, Blood Pressure and SpO2 Sterility Sterility: Hand Hygiene, Surgical Cap, Surgical Mask and Chlorhexidine Sedation Given During Procedure Sedation Given (Indicate Dose Given): Versed IV Dose:: 2 mg Patient Mental Status Patient Mental Status: Sedate with meaningful communication Nerve Block 1st Nerve Block: Laterality: Left Block Type: Interscalene Ultrasound Image Saved?: Yes Needle / Catheter Used: 100mm SonoPlex II Local Anesthetic Bolus (Indicate Dose Given): Lidocaine used for local infiltration of skin, Injected in 3-5ml increments after negative blood aspiration, Bupivacaine 0.5% Dose:: 10 ml and Exparel Dose:: 10 ml Additives (Indicate Dose Given): None Ultrasound: Sterile probe cover and gel used Nerve Stimulator: Supplement to Ultrasound use and No twitch or parasthesia noted < 0.5 mA Paresthesia: None Post Procedure Pain score (0-10): 3 Procedure Tolerated: No Complications and Patient tolerated well Procedure Outcome: Successful Procedure Comment: Stimulator stimulated for a moment: posterior scapula and some stimulation down the hand, indicated thumb. Needle repositioned and stimulation ceased. Performed By: Ronaldo Olson
[2022-11-27] MEDS: Bupivacaine 0.25% Pres-Free W/EPI 30 ML VIAL (08:12)
[2022-11-27] MEDS: Normal Saline 10 ML VIAL IJ (09:16)
[2022-11-27] MEDS: HYDROmorphone 2 MG/ML SYR IVP ×2 (09:16→09:30)
--- NOTE | 2022-11-27 11:30 | W.ANESPOSTOP ---
Postoperative Evaluation Date, Time and Location Date Performed: 11/27/22 Time Performed: 10:58 Patient Location: Day Surgery Unit Vital Signs Most Recent Imported Vital Signs: Most Recent Vital Signs Temp Pulse Resp BP Pulse Ox 36.3 C L 65 16 101/67 94 11/27/22 10:25 11/27/22 10:25 11/27/22 10:25 11/27/22 10:25 11/27/22 10:25 Pain Score Most Recent Pain Score: Most Recent Pain Score Pain Level 1 11/27/22 09:49 Assessment Mental Status: Awake (Alert & Oriented to Patient Baseline) Airway and Respiratory Function: Patent airway with normal (patient baseline) respiratory exam Cardiovascular Function: Hemodynamically Stable Hydration Status: Adequately Hydrated Nausea & Vomiting: No Nausea or Vomiting Pain: Pt. Denies Any Pain Peripheral Nerve Block: Regional nerve block not resolved at time of post operative discharge
== END 2022-11-27 11:35 | disposition home or self-care (01) ==
PROVIDERS: PCP Internal Medicine; Visit Provider Student in an Organized Health Care Education/Training Program
PROC: (CPT 20680; principal; 2022-11-27 07:30)
DX: Z47.2 Encounter for removal of internal fixation device (principal); S43.102D Unspecified dislocation of left acromioclavicular joint, subsequent encounter; X58.XXXD Exposure to other specified factors, subsequent encounter
CPT/HCPCS: 20680; 76942; 81025; 73020; J0131; J0690; J1100; J1170; J1885; J2250; J2405

== ENCOUNTER 2023-01-25 16:36 | Outpatient (REF) | payer MEDICAID, SELFPAY ==
--- NOTE | 2023-01-25 16:00 | PAPFT_PTH ---
PATIENT: Alice Natarajan LOC: [facility]#:[id number] AGE/SX: 32/F ROOM: RE01/25/[address]: Deepika Lemus : 1990 BED: DIS: 01/25/2023 SPEC #: [id number] RECD: 01/26/23 12:57 STATUS: MUNIRA REKamran #: [id number] DEMETRA: 01/25/23 16:[address]: Deepika Lemus DEPT: [facility] Cytology RECD BY: Lucero Magaña Tissues: 1 - CX/ENDOCX FOR PAP SMEARS Procedures: PAP THIN PREP/[facility] Screening HPV DNA PROBE Comments: [id number]
== END 2023-01-25 16:37 | disposition home or self-care (01) ==
LOC: NCHCN 16:36
PROVIDERS: PCP Internal Medicine; Visit Provider Internal Medicine
DX: Z12.4 Encounter for screening for malignant neoplasm of cervix (principal); Z11.51 Encounter for screening for human papillomavirus (HPV)
CPT/HCPCS: 88142; 87624

== ENCOUNTER 2023-03-29 18:10 | Outpatient (REF) | payer MEDICAID, SELFPAY | END 2023-03-29 18:11 | disposition home or self-care (01) | LOC: NCHCN 18:10 | PROVIDERS: PCP Internal Medicine; Visit Provider Internal Medicine | DX: N39.0 Urinary tract infection, site not specified (principal) | CPT/HCPCS: 87077; 87086; 87186 ==

== ENCOUNTER 2023-06-04 15:57 | Outpatient (REF) | payer MEDICAID, SELFPAY | END 2023-06-04 15:58 | disposition home or self-care (01) | LOC: NCHCN 15:57 | PROVIDERS: PCP Internal Medicine; Visit Provider Internal Medicine | DX: R30.0 Dysuria (principal) | CPT/HCPCS: 87077; 87086; 87186 ==

== ENCOUNTER 2024-06-05 14:23 | Outpatient (REF) | payer MEDICAID, SELFPAY | END 2024-06-05 14:24 | disposition home or self-care (01) | LOC: NCHCN 14:23 | PROVIDERS: PCP Internal Medicine; Visit Provider Internal Medicine | DX: R10.9 Unspecified abdominal pain (principal) | CPT/HCPCS: 87086 ==